=== PATIENT | female | born 1970 | race Caucasian/White ===

== ENCOUNTER 2017-09-03 10:34 | Emergency (ER) | payer SELFPAY ==
[~2017-09-03] VITALS: Ht 162.6 cm; Wt 68.0 kg
--- NOTE | 2017-09-03 10:40 | NUR ---
PRESENTS TO ER C/O CHEST PAIN AND SORETHROAT, X 2 DAYS, SLIGHTLY COUGHING. WEAKNESS X 2 DAYS. A/OX 4. BREATHING EVEN AND UNLABORED. NO SOB. NAD, VITALS STABLE. SAFETY AND COMFORT MEASURES IN PLACE. AWAITING MD ORDERS.
--- NOTE | 2017-09-03 10:55 | NUR ---
MOLDING ENGINEER AT BEDSIDE FOR BLOOD DRAW.
--- NOTE | 2017-09-03 11:00 | NUR ---
FRAME CATCHER AT BEDSIDE FOR BLOOD DRAW.
[2017-09-03 11:03] LABS: BASOPHILS % (AUTO) 0.1 % (0.0-2.0); EOSINOPHILS # (AUTO) 0.2 /CMM (0.0-0.7); EOSINOPHILS % (AUTO) 2.6 % (0.0-6.0); HEMATOCRIT 40 % (33-45); HEMOGLOBIN 13.7 g/dL (11.5-14.8); LYMPHOCYTES # (AUTO) 2.4 /CMM (0.8-4.8); LYMPHOCYTES % (AUTO) 38.4 % (20.0-44.0); MEAN CORPUSCULAR HEMOGLOBIN 27 PG (26.0-33.0); MEAN CORPUSCULAR HGB CONC 34 g/dl (31.0-36.0); MEAN CORPUSCULAR VOLUME 80 fL (82-100); MONOCYTES # (AUTO) 0.6 /CMM (0.1-1.30); MONOCYTES % (AUTO) 10.1 % (2.0-12.0); NEUTROPHILS % (AUTO) 48.8 % (43.0-81.0); PLATELET COUNT (AUTO) 214 /CMM (150-450); RDW COEFFICIENT OF VARIATION 12.8 (11.5-15.0); RED BLOOD CELL COUNT(AUTO) 5.07 MIL/uL (4.0-5.2); WHITE BLOOD COUNT (AUTO) 6.2 K/uL (4.3-11.0)
[2017-09-03 11:13] LABS: CALCIUM, SERUM 9.5 mg/dL (8.5-10.1); CARBON DIOXIDE 23 mmol/L (21-32); CHLORIDE 105 mmol/L (98-107); CREATININE 0.5 mg/dL (0.6-1.3); GLUCOSE 101 mg/dL (74-106); SODIUM SERUM 137 mmol/L (136-145); UREA NITROGEN, BLOOD 15 mg/dL (7-18)
[2017-09-03 11:18] LABS: INR 0.88 (0.85-1.15)
[2017-09-03 11:21] LABS: TROPONIN I < 0.017 ng/mL (0.00-0.056)
[2017-09-03 12:29] VITALS: BP 108/62
--- NOTE | 2017-09-03 12:30 | NUR ---
Patient discharged to home in stable condition. Written and verbal after care instructions given. Patient verbalizes understanding of instruction.
== END 2017-09-03 12:30 | disposition home or self-care (01) ==
LOC: ER 10:36
DX: R07.89 Other chest pain (principal); E07.9 Disorder of thyroid, unspecified
CPT/HCPCS: 36415; 71045-TC; 80048-TC; 84443-TC; 84484-TC; 85025-TC; 85730-TC; A4606; Z7610

== ENCOUNTER 2018-09-09 09:55 | Emergency (ER) | payer MEDICAID ==
[~2018-09-09] VITALS: Ht 152.4 cm; Wt 58.1 kg
--- NOTE | 2018-09-09 10:07 | NUR ---
BIB SELF W C/O VAGINAL PAIN, VAGINAL ABSCESS SINCE YESTERDAY, TO ER BED 16 , CHANGED TO [place], HOOKED TO MONITOR, DR TOM AT BEDSIDE
[2018-09-09 10:19] VITALS: BP 115/72
--- NOTE | 2018-09-09 10:19 | NUR ---
Patient discharged to home in stable condition. Written and verbal after care instructions given. Patient verbalizes understanding of instruction.
== END 2018-09-09 10:20 | disposition home or self-care (01) ==
LOC: ER 09:57
DX: N75.0 Cyst of Bartholin's gland (principal); E07.9 Disorder of thyroid, unspecified

== ENCOUNTER 2019-02-15 09:16 | Emergency (ER) | payer MEDICAID ==
[~2019-02-15] VITALS: Ht 160 cm; Wt 68.0 kg
--- NOTE | 2019-02-15 09:40 | NUR ---
L WRIST/LFA PAIN S/P FALLING OFF A SCOOTER. DENIES HEAD TRAUMA. PATIENT A/OX4, NO DISTRESS NOTED.
[2019-02-15] MEDS ORDERED: ACETAMINOPHEN ES 500 MG TABLET PO ONE (10:00)
[2019-02-15] MEDS ORDERED: ACETAMINOPHEN ES 500 MG TABLET ONE (10:07)
--- NOTE | 2019-02-15 11:58 | NUR ---
Patient discharged to home in stable condition. Written and verbal after care instructions given. Patient verbalizes understanding of instruction.
[2019-02-15 12:07] VITALS: BP 113/77
== END 2019-02-15 12:08 | disposition home or self-care (01) ==
LOC: ER 09:17
DX: S52.532A Colles' fracture of left radius, initial encounter for closed fracture (principal); W05.1XXA Fall from non-moving nonmotorized scooter, initial encounter; Y93.89 Activity, other specified; Y92.89 Other specified places as the place of occurrence of the external cause; Y99.8 Other external cause status; E07.9 Disorder of thyroid, unspecified
CPT/HCPCS: 73110